=== PATIENT | male | born 1970 ===

== ENCOUNTER 2020-04-22 10:45 | Inpatient (IN) | payer OTHER ==
[~2020-04-22] VITALS: Ht 172.7 cm; Wt 77.1 kg
[2020-04-22] MEDS ORDERED: CARVEDILOL25 M1 PO (15:59)
[2020-04-22] MEDS ORDERED: HYDRALAZINE HCL25 MG PO (15:59)
[2020-04-22] MEDS ORDERED: HYDROCHLOROTH12.5 MG PO (16:00)
[2020-04-22] MEDS ORDERED: ATORVASTATIN CA10 MG PO (16:01)
[2020-04-22] MEDS ORDERED: MICARDIS80 MG PO (16:01)
[2020-04-29] MEDS ORDERED: CALCITRIOL0.25 MCG (08:02)
== END 2020-05-04 13:25 | disposition home or self-care (01) | DRG 330 ==
LOC: O/R 04-29 05:42 → SURH 04-29 05:42 → SURG 04-29 11:54 → SURH 04-29 13:03
PROVIDERS: ADMIT Surgery; ATTEND Surgery
PROC: 0DBN4ZZ Excision of Sigmoid Colon, Percutaneous Endoscopic Approach (ICD-10-PCS; 2020-04-29)
PROC: 07BC4ZX Excision of Pelvis Lymphatic, Percutaneous Endoscopic Approach, Diagnostic (ICD-10-PCS; 2020-04-29)
PROC: 0DBP4ZZ Excision of Rectum, Percutaneous Endoscopic Approach (ICD-10-PCS; principal; 2020-04-29 07:00)
DX: C19 Malignant neoplasm of rectosigmoid junction (principal); N17.9 Acute kidney failure, unspecified; N18.4 Chronic kidney disease, stage 4 (severe); D50.0 Iron deficiency anemia secondary to blood loss (chronic); Z53.1 Procedure and treatment not carried out because of patient's decision for reasons of belief and group pressure; I13.10 Hypertensive heart and chronic kidney disease without heart failure, with stage 1 through stage 4 chronic kidney disease, or unspecified chronic kidney disease

== ENCOUNTER 2020-04-27 06:00 | Day surgery (SDC) | payer OTHER ==
[~2020-04-27 06:00] MED LIST: ATORVASTATIN CA10 MG PO; CARVEDILOL25 M1 PO; HYDRALAZINE HCL25 MG PO; HYDROCHLOROTH12.5 MG PO; MICARDIS80 MG PO
== END 2020-04-27 10:25 | disposition home or self-care (01) ==
LOC: AMB-ENDOS 06:00
PROVIDERS: ATTEND Surgery
DX: C19 Malignant neoplasm of rectosigmoid junction (principal); Z20.828 Contact with and (suspected) exposure to other viral communicable diseases; K64.8 Other hemorrhoids